=== PATIENT | male | born 1955 | race Caucasian/White ===

== ENCOUNTER 2016-07-09 04:35 | Inpatient (IN) | payer OTHER ==
[~2016-07-09] VITALS: Ht 170.2 cm; Wt 74.8 kg
[2016-07-09] MEDS ORDERED: EDARBYCLOR 40-1 EACH PO (08:50)
[2016-07-09] MEDS ORDERED: ASPIRIN325 M2 PO (11:27)
[2016-07-09] MEDS ORDERED: MIRALAX17 G1 PO (11:27)
[2016-07-09] MEDS ORDERED: DILAUDID4 M1 PO (11:27)
[2016-07-09] MEDS ORDERED: PRILOSEC OTC20 M1 PO (11:27)
[2016-07-09] MEDS ORDERED: COLACE100 M1 PO (11:27)
--- NOTE | 2016-07-09 11:31 | Patient Discharge Instructions ---
Discharge Instructions General Discharge Information You were seen/treated for: Primary right hip osteoarthritis, right hip pain You had these procedures: Right total hip arthroplasty Special Instructions: Follow-up with Dr. Luis in 6 weeks. Call the office with any concerns of fever greater than 101.5. Large amounts of discharge or drainage from the wound or inability to bear weight on your operative side. The visiting nurse will remove your sutures/marely in approximately 2 weeks' time if applicable You may weight-bear as tolerated. Activity as tolerated. Keep the dressing dry as possible, you may shower with the dressing in place however, do not take a bath or submerge the wound in water as this will increase her chance of infection. Change the dressings after the shower. You may use dry gauze and tape or large Band-Aids Do not apply any ointments to the wound. Due to a risk of blood clots you'll need to be on aspirin 325 mg twice a day for the next 3 weeks. Take pain medication as directed. Apply ice as needed for 20 minutes every hour for the first few days. Please take Colace and/or MiraLAX [id number] to avoid constipation while you're on narcotic pain medication. Diet Continue normal diet: Yes Recommended Diet: Regular Activity Full Activity/No Limits: No Activity Self Limited: Yes Acute Coronary Syndrome Inclusion Criteria At DC or during hospital stay patient has or had the following: ACS DIAGNOSIS No Discharge Core Measures Meds if any: Prescribed or Continued at Discharge Meds if any: NOT Prescribed or Continued at Discharge Congestive Heart Failure Inclusion Criteria At DC or during hospital stay patient has or had the following: CHF DIAGNOSIS No Discharge Core Measures Meds if any: Prescribed or Continued at Discharge Meds if any: NOT Prescribed or Continued at Discharge Cerebrovascular accident Inclusion Criteria At DC or during hospital stay patient has or had the following: CVA/TIA Diagnosis No Discharge Core Measures Meds if any: Prescribed or Continued at Discharge Meds if any: NOT Prescribed or Continued at Discharge Venous thromboembolism Inclusion Criteria VTE Diagnosis No VTE Type NONE VTE Confirmed by (Test) NONE Discharge Core Measures - Per Current guidelines, there needs to be overlap - treatment for the first 5 days of Warfarin therapy. - If discharged on Warfarin prior to 5 days of - overlap therapy, the patient will need to be - assessed for post discharge needs including - *Post discharge parental anticoagulation - *Warfarin and/or parental anticoagulation education - *Follow up date to check INR post discharge At least 5 days overlap therapy as Inpatient No Meds if any: Prescribed or Continued at Discharge Note: Overlap Therapy is Warfarin and Anticoagulant Meds if any: NOT Prescribed or Continued at Discharge
--- NOTE | 2016-07-09 11:39 | Admission Core Measures ---
Admission Meds I reviewed the following Meds: Current Medications Sig/Shawanda Start time Last Medication Dose Stop Time Status Admin Acetaminophen 975 MG ONCE 07/09 NR (Tylenol) 07/09 2358 Cefazolin Sodium 2,000 MG ONCE 07/09 NR (Kefzol-Ancef Inj) 07/09 2358 Oxycodone HCl 10 MG ONCE 07/09 0000 NR (Roxicodone) 07/09 2358 Acute Coronary Syndrome Inclusion Criteria ACS Diagnosis No Inpatient Core Measures LDL Reminder: If No, please order W/I first 24hr of stay Congestive Heart Failure Inclusion Criteria CHF Diagnosis No Cerebrovascular accident Inclusion Criteria CVA/TIA Diagnosis No Inpatient Core Measures Bedside Swallow Eval Reminder: If BSE failed, place ST order Antithrombotic Reminder: Order Antithrombotic Medication by end of day 2 Antithrombotic Reminder: Document Reason Antithrombotic Not ordered by end of day 2 AFIB/Flutter Reminder: If Present, add to problem list AFIB/Flutter Reminder: Order Anticoag Medication for pts with AFIB/Flutter Atherosclerosis Reminder: If Present, add to problem list LDL Reminder: If No, please order W/I first 24hr of stay PT Order Reminder: If No, please order Venous thromboembolism Inpatient Core Measures VTE Risk Factors: Age > 40, Surgery VTE Prophylaxis Ordered Inpt Mech & Pharm No Mech VTE prophylaxis d/t No contraindications No VTE Pharm Prophylaxis d/t No contraindications Inclusion Criteria - Per Current guidelines, there needs to be overlap - treatment for the first 5 days of Warfarin therapy. - Parenteral Anticoagulation (IV or SC) needs to be - given along with Warfarin therapy. VTE Diagnosis No VTE Type NONE VTE Confirmed by (Test) NONE Problem List As ranked by this Provider includes Assessment & Plan 1. Unilateral primary osteoarthritis, right hip HOME MEDS Home Med List Aspirin (Aspirin*) 325 MG TABLET 1 TAB PO BID DVT Azilsartan Med/Chlorthalidone (Edarbyclor 40-12.5 MG Tablet) 40 MG-12.5 MG TABLET 1 PO D BP (Reported) Docusate Sodium (Colace) 100 MG CAPSULE 1 CAP PO BID CONSTIPATION Hydromorphone HCl (Dilaudid) 4 MG TABLET 1-2 TAB PO Q4-6 PRN PRN PAIN Omeprazole Magnesium (Prilosec Otc) 20 MG TABLET.DR 1 TAB PO DAILY PPI Polyethylene Glycol 3350 (Miralax) 17 GRAM POWD.PACK 1 PAC PO DAILY CONSTIPATION
--- NOTE | 2016-07-09 11:40 | Surgical Discharge Summary ---
Visit Information Visit Dates Admission Date: 07/09/16 Discharge Date: 07/10/16 History of Present Illness Chief Complaint: Right hip pain secondary to osteoarthritis Surgical History Pertinent Surgical History: non-contributory Review of Systems: see hpi Hospital Course Course Attending Physician: EMANI CLANCY,LUIS ANGEL Primary Care Physician: UNKNOWN Hospital Course: Patient was admitted for elective RIGHT hip replacement secondary to osteoarthritis. The patient tolerated the procedure well without complications. Postoperatively the patient was monitored and tolerated by mouth intake, vital signs are stable, afebrile. Patient was able to void spontaneously. Pain was well-controlled. Evaluated by physical therapy and deemed stable for discharge home. Plan is to follow up as scheduled and instructed to call with any questions or concerns Allergies: Coded Allergies: No Known Allergies (07/08/16) Disposition Summary Disposition Principal Diagnosis: Primary unilateral right hip osteoarthritis Additional Diagnosis: Status post right total hip replacement Discharge Disposition: home health services Discharge Instructions General Discharge Information Code Status: Full Code Patient's Diet: Regular Patient's Activity: Self-limiting No lifting greater than 10 pounds Follow-Up Instructions/Appts: With Dr. Luis in 6 weeks Medications at Discharge Discharge Medications: Continue taking these medications: Azilsartan Med/Chlorthalidone (Edarbyclor 40-12.5 MG Tablet) 40 MG-12.5 MG TABLET 1 ORAL Every Day Comments: Last Taken: NOT GIVEN IN HOSPITAL Time: Start taking the following new medications: Aspirin (Aspirin*) 325 MG TABLET 1 Tablet ORAL TWICE DAILY Qty = 60 No Refills Comments: Last Taken:07/10/16 Time:0900 Hydromorphone HCl (Dilaudid) 4 MG TABLET 1-2 Tablet ORAL EVERY 4-6 HOURS NEEDED as needed for PAIN Qty = 36 No Refills Comments: Last Taken:07/10/16 Time:0900 Omeprazole Magnesium (Prilosec Otc) 20 MG TABLET.DR 1 Tablet ORAL DAILY Qty = 30 No Refills Comments: Last Taken:NOT GIVEN IN HOSPITAL Time: Docusate Sodium (Colace) 100 MG CAPSULE 1 Capsule ORAL TWICE DAILY Qty = 30 No Refills Comments: Last Taken:07/10/16 Time:0900 Polyethylene Glycol 3350 (Miralax) 17 GRAM POWD.PACK 1 Packet ORAL DAILY Qty = 30 No Refills Instructions: dissolve in water Comments: Last Taken:07/10/16 Time:0900 Morphine Sulfate (Ms Contin) 15 MG TABLET.ER 1 Tablet ORAL TWICE DAILY Qty = 5 No Refills Comments: Last Taken:07/10/16 Time:0900
--- NOTE | 2016-07-09 13:16 | RADIOLOGY REPORT ---
EXAMINATION: XR HIP, RIGHT CLINICAL INFORMATION: Status post replacement COMPARISON: None TECHNIQUE: 2 view of the right hip. FINDINGS: 2 part prosthesis. Good visual result. No acute fracture. IMPRESSION: Good visual result bipolar prosthesis
[2016-07-09 14:00] VITALS: BP 118/70
--- NOTE | 2016-07-09 14:00 | NUR ---
PT ADMIITED FROM PACU S/P RT THR, PT AXO, DENIES PAIN, C/O RT LEG NUMBNESS, RT HIP DSG CDI, + PEDAL PULSE, PT ORIENTED TO ROOM, CALL LIGHT AND PLAN OF CARE
[2016-07-09] MEDS ORDERED: MS CONTIN15 M2 PO (15:20)
--- NOTE | 2016-07-09 15:26 | PN- Orthopedic ---
Subjective Subjective: post op check , POD #0 right total hip arthroplasty anterior approach Patient is comfortable. His pain is controlled. He denies any chest pain shortness of breath nausea vomiting abdominal pain. He is yet to be up with physical therapy. Objective Vital Signs and I&Os Vital Signs Date Time Temp Pulse Resp B/P Pulse O2 O2 Flow FiO2 Ox Delivery Rate 07/09 1400 96.0 88 18 118/70 96 Room Air Intake & Output 07/09 1600 07/09 0800 07/09 0000 07/08 1600 07/08 0800 07/08 0000 Intake Total Output Total Balance Patient 165 lb 165 lb Weight Physical Exam: Well-developed well-nourished no apparent distress. Sitting in a chair, comfortable HEENT: Atraumatic, extraocular motion intact Neck: Supple, no lymphadenopathy Respiratory: No respiratory distress Extremities: No edema RIGHT lower extremity hip dressing in place, Dressing clean dry and intact Mild thigh edema No signs of infection. No shortening or rotation Hip range of motion is limited and without unexpected pain Still with mild numbness in both feet, motion is intact Bilateral calves are supple, nontender. Neuro: Alert and oriented x3 Psych: Mood affect normal, normal memory normal judgment. Skin: Warm and dry, no rash on exposed skin Assessment/Plan Assessment/Plan Postop day 0 status post right total hip arthroplasty anterior approach -Anticipate discharge tomorrow -PT, weightbearing as tolerated, patient has 2 flights of stairs in his house. -Aspirin 325 mg for DVT prophylaxis, ALPS -Prilosec for GI prophylaxis -Regular diet -Check labs in the morning -Pain control -2 doses of ancef Core Measures/Miscellaneous Venous Thromboembolism VTE Risk Factors: Age > 40, Surgery VTE Contraindications: No Contraindications VTE Prophylaxis Ordered Inpt: Mech & Pharm VTE Diagnosis: No VTE Type: NONE VTE Confirmed by (Test): NONE Beta Cj Is Beta Cj a Home Med? No Antibiotics Is Patient on Antibiotics? Yes If Yes: prophylaxis
--- NOTE | 2016-07-09 15:27 | NUR ---
PHYSICAL THERAPY: Attempted to see patient again this afternoon. Patient continues to be experiencing numbness through BLE and refusing to trial ambulation at this time. Will f/u as appropraite when full sensation returns and safe to ambulate w/ RW.
[2016-07-09 16:03] VITALS: BP 150/54
--- NOTE | 2016-07-09 16:55 | Operative Report ---
Operative/Inv Procedure Report Surgery Date: 07/09/16 Name of Procedure: Right total hip replacement Pre-Operative Diagnosis: Primary right hip DJD Post-Operative Diagnosis: Same Estimated Blood Loss: 300 Surgeon/Supervisor Of Communications: EMANI CLANCY,LUIS ANGEL Gallagher Anesthesia: block Operative/Procedure Note Note: Description of Procedure: The patient was taken to the operating room and positively identified. After induction of spinal anesthesia and administration of appropriate pre-operative antibiotics, the patient was positioned supine on the operating room table and all bony prominences were well padded. After performing a surgical timeout, the right lower extremity was prepped and draped in the usual sterile fashion. A direct anterior approach was made to the right hip. The incision was carried sharply through superficial soft tissues to the level of the fascia. Meticulous hemostasis was maintained with Bovie electocautery. The fascia over the tensor fascia radha muscle was opened sharply and the interval between the TFL and the sartorius was entered bluntly taking care to stay lateral to the lateral femoral cutaneous nerve. Retractors were placed around the femoral neck and the pericapsular fat was identified. The ascending branches of the lateral femoral circumflex vessels were identified and carefully coagulated. The pericapsular fat and anterior capsule were then resected. A napkin ring osteotomy was performed and the femoral head was removed without difficulty. Attention was then turned to the acetabulum. After appropriate placement of retractors, the acetabulum was exposed. Soft tissue was cleaned from the acetabular margin and notch. Overhanging osteophytes were removed and the teardrop was exposed. The acetabulum was then sequentially reamed to accept a 58 mm [place]levna Tritanium hemispherical solid back shell. This was impacted into place in the appropriate position and fitted with a 36 mm Trident X3 zero degree polyethylene insert. Attention was then turned to the femur. After performing the appropriate ligament releases, the proximal femur was exposed. It was then sequentially broached to accept a size 6 Plevna accolade 2 stem. This was trialed for leg length and stability. The trial component was removed and the final component was impacted into place. The trunnion was carefully cleaned and fit with a 36 mm, +0 Biolox delta ceramic femoral head. The hip was reduced and put through a full range of motion and found to be stable. The articular space was then irrigated with sterile saline. The periarticular soft tissues were infilitrated with Marcaine. The fascial layer was closed with interrupted #1 vicryl suture and the skin was re-approximated with interrupted 2 -0 vicryl. The skin was closed with a running 3-0 V-Lock suture. Steri-strips and a sterile dressing were applied. The patient was awakened and taken to the recovery room in satisfactory condition.
[2016-07-09 18:04] VITALS: BP 130/62
[2016-07-09 20:00] VITALS: BP 126/70
[2016-07-10 00:09] VITALS: BP 136/66
[2016-07-10 04:15] VITALS: BP 130/66
--- NOTE | 2016-07-10 06:56 | PN- Orthopedic ---
Subjective Subjective: 61-year-old male postop day 1 status post right total hip replacement anterior approach. He states that yesterday he was having a difficult time with numbness in his legs which was residual from anesthesia and could not participate fully in physical therapy. In the evening he felt much better. Is able to ambulate well, up and down the halls without difficulty. Today he feels much better. He has mild complaints of pain that is controlled with pain medication by mouth. He has no fever no shortness of breath, no further numbness in his legs, no calf pain, no chest pain nausea or vomiting. He is passing gas and voiding. He would like to be discharged home today Objective Vital Signs and I&Os Vital Signs Date Time Temp Pulse Resp B/P Pulse O2 O2 Flow FiO2 Ox Delivery Rate 07/10 0415 98.1 71 20 130/66 97 Room Air 07/10 0009 98.5 77 21 136/66 97 Room Air 07/09 2000 98.3 88 20 126/70 96 Room Air 07/09 1814 Room Air Room Air 07/09 1804 97.5 95 20 130/62 98 Room Air 07/09 1603 95.4 84 20 150/54 94 Room Air 07/09 1400 96.0 88 18 118/70 96 Room Air Intake & Output 07/10 0800 07/10 0000 07/09 1600 07/09 0800 07/09 0000 07/08 1600 Intake Total 440 1005 Output Total Balance 440 1005 Intake, IV 200 525 Intake, Oral 240 480 Patient 165 lb 165 lb Weight Physical Exam: Well-developed well-nourished no apparent distress. HEENT: Atraumatic, extraocular motion intact Neck: Supple, no lymphadenopathy Respiratory: No respiratory distress Extremities: No edema RIGHT lower extremity hip dressing in place, Dressing clean dry and intact Incision with minimal marginal erythema Mild thigh edema and swelling around the incision site. No shortening or rotation Hip range of motion is limited and with minimal pain Neurovascularly intact distally Bilateral calves are supple, nontender. Neuro: Alert and oriented x3 Psych: Mood affect normal, normal memory normal judgment. Skin: Warm and dry, no rash on exposed skin Assessment/Plan Assessment/Plan 61-year-old male postop day 1 status post right total hip arthroplasty anterior approach. -Continue aspirin for DVT prophylaxis -Pain is well controlled, continue by mouth regimen -Follow labs that were drawn this morning -PT evaluation this morning, if clears he'll be discharged home with [facility] services. -Follow up in 6 weeks as outpatient Core Measures/Miscellaneous Venous Thromboembolism VTE Risk Factors: Age > 40, Surgery VTE Contraindications: No Contraindications VTE Prophylaxis Ordered Inpt: Mech & Pharm VTE Diagnosis: No VTE Type: NONE VTE Confirmed by (Test): NONE Beta Cj Is Beta Cj a Home Med? No Antibiotics Is Patient on Antibiotics? Yes If Yes: prophylaxis
[2016-07-10 07:54] LABS: ABSOLUTE BASOPHIL COUNT 0 /CUMM (0.0-0.2); ABSOLUTE EOSINOPHIL COUNT 0.1 /CUMM (0.0-0.7); ABSOLUTE GRANULOCYTE CT 6.1 /CUMM (1.4-6.5); ABSOLUTE LYMPH COUNT 0.9 /CUMM (1.2-3.4); ABSOLUTE MONOCYTE COUNT 1.2 /CUMM (0.10-0.60); BASOPHIL % 0.2 % (0.0-2.0); EOSINOPHIL % 0.8 % (0-5); GRANULOCYTE % 73.3 % (42.2-75.2); HEMATOCRIT 27.7 % (42-52); MEAN CORPUSCULAR VOLUME 72.6 FL (80.0-94.0); MEAN PLATELET VOLUME 8.8 FL (7.4-10.4); PLATELET COUNT 137 /CUMM (130-400); RBC DISTRIBUTION WIDTH 14.8 % (11.5-14.5); RED BLOOD CELL CT 3.82 /CUMM (4.70-6.10); WHITE BLOOD CELL COUNT 8.3 /CUMM (4.8-10.8)
[2016-07-10 08:36] VITALS: BP 128/76
== END 2016-07-10 13:21 | disposition home health service (06) | DRG 470 ==
LOC: ENRESERVDT → ENRESERVTM → ENPENDDIS 04:35 → SDA 04:35 → 2NA 13:51
PROVIDERS: Physician Assistant Surgical; ADMIT Orthopaedic Surgery
PROC: 0SR904A Replacement of Right Hip Joint with Ceramic on Polyethylene Synthetic Substitute, Uncemented, Open Approach (ICD-10-PCS; principal; 2016-07-09)
DX: M16.11 Unilateral primary osteoarthritis, right hip (principal); I10 Essential (primary) hypertension
CPT/HCPCS: 2NAP; 73502-RT; 82436; 88304; 97116-GO; 97161-GP; 97530-GO; J0690; J0735; J2405; J2550; J7042